=== PATIENT | female | born 1965 | race African-American/Black ===

== ENCOUNTER 2018-07-23 13:12 | Inpatient (IN) ==
[2018-07-23] MEDS ORDERED: DESYREL PO PRN (13:44)
[2018-07-23] MEDS ORDERED: MAALOX PLUS LIQUID PO PRN (13:44)
[2018-07-23] MEDS ORDERED: TYLENOL PO PRN (13:44)
[2018-07-23] MEDS ORDERED: SENOKOT PO PRN (13:44)
[2018-07-23] MEDS ORDERED: IMODIUM PO PRN (13:44)
[2018-07-23] MEDS ORDERED: DULCOLAX PR PRN (13:44)
[2018-07-23] MEDS ORDERED: D5W 1,000 ML IV PRN (13:44)
[2018-07-23] MEDS ORDERED: ROBAXIN PO PRN (13:44)
[2018-07-23] MEDS ORDERED: TUBERSOL ID ONE (13:44)
[2018-07-23] MEDS ORDERED: ATARAX PO PRN (13:44)
[2018-07-23] MEDS ORDERED: PHENOBARBITAL IV PRN (13:44)
[2018-07-23] MEDS ORDERED: ZOFRAN ODT PO PRN (13:44)
[2018-07-23] MEDS ORDERED: BENTYL PO PRN (13:44)
[2018-07-23] MEDS ORDERED: ZOFRAN IM PRN (13:44)
[2018-07-23] MEDS ORDERED: SINEMET 25/100 PO PRN (13:44)
[2018-07-23] MEDS ORDERED: SEROQUEL PO PRN (13:44)
[2018-07-23] MEDS ORDERED: LIBRIUM PO PRN (13:44)
[2018-07-23 14:05] LABS: HEMATOCRIT 39.8 % (37.0-47.0); HEMOGLOBIN 12.5 g/dL (12.0-16.0); MCH 32.7 PG (27-31); MCHC 31.4 g/dL (33-37); MCV 104.2 FL (81-99); MPV 9.5 FL (7.4-10.4); RBC 3.82 XMIL (4.2-5.4); RDW 12.2 % (11.5-14.5); WBC 8.85 X1000 (4.8-10.8)
[2018-07-23 14:21] LABS: AMYLASE 51 U/L (20-200); LIPASE 36 U/L (13-60)
[2018-07-23 14:25] LABS: AGAP 7; ALBUMIN 3.6 g/dL (3.5-5.0); ALKALINE PHOSPHATASE 85 U/L (32-104); BUN 9 mg/dL (8-22); CALCIUM 8.7 mg/dL (8.8-10.2); CHLORIDE 104 mmol/L (98-107); COSMO 286; CREATININE 0.7 mg/dL (0.5-0.9); ESTIMATED GFR > 60; GLUCOSE 149 mg/dL (70-104); GOT 13 U/L (10-30); GPT 10 U/L (10-36); POTASSIUM 4.3 mmol/L (3.5-5.1); PROTIME 13.7 Seconds (11.0-16.0); SODIUM 143 mmol/L (136-145); TCO2 31 mmol/L (25-35); TOTAL PROTEIN 7.2 g/dL (6.3-8.3)
[2018-07-23] MEDS ORDERED: PNEUMOVAX 23 IM ONE (16:01)
[2018-07-23] MEDS: NICODERM PATCH TD PRN (16:56)
[2018-07-23] MEDS: SUBOXONE 2 MG/0.5 MG FILM SL SCH (16:56)
[2018-07-23 21:35] LABS: UR AMPHETAMINES QUAL NONE DETECTED (NONE DETECT); UR BARBITUATES QUAL NONE DETECTED (NONE DETECT); UR BENZODIAZEPIN QUAL NONE DETECTED (NONE DETECT); UR CANNABINOIDS QUAL NONE DETECTED (NONE DETECT); UR COCAINE QUAL NONE DETECTED (NONE DETECT); UR METHADONE QUAL NONE DETECTED (NONE DETECT); UR METHAMPHETAMINE QUAL NONE DETECTED (NONE DETECT); UR OPIATES QUAL NONE DETECTED (NONE DETECT); UR OXYCODONE QUAL NONE DETECTED (NONE DETECT); UR PCP QUAL NONE DETECTED (NONE DETECT); UR PROPOXYPHENE QUAL NONE DETECTED (NONE DETECT); UR TCA QUAL NONE DETECTED (NONE DETECT)
[2018-07-24] MEDS: MOTRIN PO PRN ×2 (02:36→18:12)
[2018-07-24] MEDS: SUBOXONE 2 MG/0.5 MG FILM SL SCH (04:21)
[2018-07-24] MEDS: PROTONIX PO SCH (06:03)
--- NOTE | 2018-07-24 06:44 | HISTORY AND PHYSICAL ---
CHIEF COMPLAINT: Nausea and vomiting. HISTORY OF PRESENT ILLNESS: The patient is a 52-year-old female who presented to [facility] secondary to nausea, vomiting, abdominal pain, myalgias and opiate withdrawal. Notes that she has been going to a clinic receiving oxycodone 30 mg a couple of times a day. States she has been overtaking, and that she has run out, and states that she wants to get off of this roller coaster. SOCIAL HISTORY: Patient is single. She is employed. PAST MEDICAL HISTORY: High blood pressure, asthma, diabetes, reflux, COPD, chronic neck and back pain, chronic anxiety, recurrent bronchitis, and recurrent pneumonia. MEDICATIONS: Ventolin inhaler twice daily as needed. ALLERGIES: None. REVIEW OF SYSTEMS: CINA score is 11 secondary to crampy abdominal pain, occasional nausea and vomiting. She states that she has frequent cold chills. Denies any fevers. She has severe muscle pains and aching, has restlessness. She has frequent yawning, and frequent changes in temperature. She is anxious, restless, and frequently moving about. Denies any dysuria, frequency, urgency, hesitancy, polyuria or polydipsia. Denies skin rashes, weight loss or weight gain. Denies any changes in weight. Denies skin rashes. Denies focalized numbness, tingling, or weakness. Denies any dysuria, frequency, urgency, hesitancy, polyuria or polydipsia. SUBSTANCE ABUSE HISTORY: The patient has never been in a treatment facility in the past. She notes that she smokes half a pack a day and has so for many years, started smoking at age 8. Started opiates at age 43 after an injury. Currently, she is taking at least 3 30 mg oxycodone a day sometimes more. FAMILY HISTORY: Noncontributory. PHYSICAL EXAMINATION: VITAL SIGNS: Reviewed. Stable. GENERAL: Patient is awake, alert, and oriented. She is in no current respiratory distress. HEENT: Normocephalic. NECK: Supple. CARDIOVASCULAR: Regular rate. CHEST: Clear. ABDOMEN: Soft. Nondistended. EXTREMITIES: Moves all extremities. NEUROLOGIC: No changes. ASSESSMENT: 1. Nausea and vomiting. 2. Abdominal pain. 3. Myalgias. 4. Paresthesias. 5. Paroxysmal sweating. 6. Opiate use and overuse with withdrawal. 7. Chronic neck and back pain. PLAN: We will continue patient in the hospital. Treat as tolerated. Place her on Suboxone. To get counseling, and further orders as needed. cc: Tobias Saab MD
[2018-07-24] MEDS: FOLIC ACID PO SCH (08:56)
[2018-07-24] MEDS: THERA M PLUS PO SCH (08:56)
[2018-07-24] MEDS: VITAMIN B-1 PO SCH (08:56)
[2018-07-24] MEDS: SUBOXONE 8 MG/2 MG FILM SL SCH (18:03)
[2018-07-24] MEDS ORDERED: DUONEB (A & A) INH PRN (20:18)
[2018-07-24] MEDS: LIORESAL PO SCH (20:29)
[2018-07-25 01:26] LABS: URINE SOURCE VOIDED
[2018-07-25 01:46] LABS: BILIRUBIN URINE NEGATIVE (NEGATIVE); BLOOD URINE NEGATIVE (NEGATIVE); CLARITY CLEAR (CLEAR); COLOR YELLOW; GLUCOSE URINE NEGATIVE (NEGATIVE); KETONE URINE TRACE mg/dL (NEGATIVE); LEUKOCYTES URINE NEGATIVE (NEGATIVE); NITRITE URINE NEGATIVE (NEGATIVE); PROTEIN URINE NEGATIVE (NEGATIVE); UROBILINOGEN URINE NORMAL
[2018-07-25] MEDS: PROTONIX PO SCH (06:00)
[2018-07-25] MEDS: SUBOXONE 8 MG/2 MG FILM SL SCH (06:00)
[2018-07-25] MEDS ORDERED: ADVAIR 250/50 DISKUS INH SCH (07:30)
[2018-07-25] MEDS ORDERED: PRINIVIL PO SCH (09:00)
[2018-07-25] MEDS ORDERED: NEURONTIN PO SCH (09:00)
[2018-07-25] MEDS ORDERED: GLUCOTROL XL PO SCH (09:00)
[2018-07-25] MEDS: THERA M PLUS PO SCH (09:06)
[2018-07-25] MEDS: VITAMIN B-1 PO SCH (09:06)
[2018-07-25] MEDS: LIORESAL PO SCH (09:07)
[2018-07-25] MEDS: FOLIC ACID PO SCH (09:07)
[2018-07-25] MEDS: NICODERM PATCH TD PRN (09:10)
[2018-07-25 12:32] VITALS: BP 140/65
== END 2018-07-25 12:20 | disposition home or self-care (01) | DRG 392 ==
LOC: P.DIRADM 13:12 → P.MEDSURG 13:18
PROVIDERS: ADMIT Family Medicine; ATTEND Family Medicine
CPT/HCPCS: 80053; 80104; 80301; 80305; 80307; 80320; 82055; 82150; 82948; 83690; 84703; 85027; 85610; 94640; 94761; A9270; G0431; G0434; G0477; G0480; G6040; XXXXX